=== PATIENT | female | born 1985 | race Asian ===

== ENCOUNTER 2016-09-05 17:21 | Emergency (ER) | payer MEDICAID ==
[2016-09-05 17:27] VITALS: BP 115/62; PULSE 78; RESP 18; TEMP 98; O2SAT 97
--- NOTE | 2016-09-05 17:38 | EDPHY ---
H & P Stated Complaint: rt ear lump inc. size with pain over last week HPI/ROS: HPI CHIEF COMPLAINT: Right earlobe pain HISTORY OF PRESENT ILLNESS: This patient very pleasant 31-year-old female, significant past medical history for agx-ulowvog-otfxtgrdi diabetes, however no longer takes diabetic medicine as she tells me she is no longer diabetic, she presents emergency room with 1 week of right earlobe pain redness warmth and swelling. She tells me she recently took her earrings out as was causing pain. She also has lymphadenopathy right periauricular and submandibular. No fever. No trouble swallowing. No ear pain inside except for the ear lobe. No lainey pus. No abscess. Of note separate complaint patient complains of intermittent week long smelling of urine but no dysuria or back pain or pelvic pain or abdominal pain. Requesting a urinalysis for and infection. Past Medical History: Xnh-lkhamfy-[id number] diabetes Past Surgical History: Not significant surgical history Social History: Smokes tobacco, denies other illicit drugs or alcohol Family History: Noncontributory ROS REVIEW OF SYSTEMS: A comprehensive 10 point review of systems is otherwise negative aside from elements mentioned in the history of present illness. Exam Constitutional triage nursing summary reviewed, vital signs reviewed, awake/ alert. Eyes normal conjunctivae and sclera, EOMI, PERRLA. HENT right earlobe: Mildly erythematous, no lainey pus, no significant induration, no fluctuance, no abscess visualize, appears to be a right earlobe cellulitis with reactive periauricular lymphadenopathy and submandibular lymphadenopathy, oropharynx unremarkable, normal inspection, atraumatic, moist mucus membranes, no epistaxis, neck supple/ no meningismus, no raccoon eyes. Respiratory clear to auscultation bilaterally, normal breath sounds, no respiratory distress, no wheezing. Cardiovascular rate normal, regular rhythm, no murmur, no edema, distal pulses normal. Gastrointestinal soft, non-tender, no rebound, no guarding, normal bowel sounds, no distension, no pulsatile mass. Genitourinary no CVA tenderness. Musculoskeletal no midline vertebral tenderness, full range of motion, no calf swelling, no tenderness of extremities, no meningismus, good pulses, neurovascularly intact. Skin pink, warm, & dry, no rash, skin atraumatic. Neurologic awake, alert and oriented x 3, AAOx3, moves all 4 extremities equally, motor intact, sensory intact, CN II-XII intact, normal cerebellar, normal vision, normal speech. Psychiatric normal mood/affect. Heme/Lymph/Immune no lymphadenopathy. Differential Diagnosis: Includes but is not limited to in a particular order cellulitis of the ear lobe, ear lobe infection, urinary tract infection, Medical Decision Making: Plan for this patient there is no abscess or significant induration to the external ear however mild warmth and erythema to the earlobe itself no lainey pus, patient be placed on Keflex, warm compresses 5 times a day for 20 minutes ENT referral case this gets worse. Also check urinalysis for infection . Urinalysis reviewed is negative no acute infection. test negative. Recommend feeling Keflex. Close ENT follow-up without her earlobe infection. Warm compresses. Return to the ER if there is any worsening symptoms questions or concerns she understands. Source: Patient - Personal History LMP (Females 10-55): 8-14 Days Ago Current Tetanus Diphtheria and Acellular Pertussis (TDAP): Yes Tetanus Vaccine Date: WITHIN 10 YRS - Medical/Surgical History Hx Asthma: No Hx Chronic Respiratory Disease: No Hx Diabetes: No Hx Cardiac Disease: No Hx Renal Disease: No Hx Cirrhosis: No Hx Alcoholism: No Hx HIV/AIDS: No Hx Splenectomy or Spleen Trauma: No Other PMH: treated type II diabetes with diet, now resolved - Social History Smoking Status: Current some day smoker Constitutional: Initial Vital Signs Temperature (C) 36.6 C 09/05/16 17:24 Heart Rate 78 09/05/16 17:24 Respiratory Rate 18 09/05/16 17:24 Blood Pressure 115/62 09/05/16 17:24 O2 Sat (%) 97 09/05/16 17:24 O2 Delivery Mode Room Air Allergies/Adverse Reactions: No Known Allergies Allergy (Unverified 03/30/14 22:56) Home Medications: Medication Instructions Recorded Cephalexin [Keflex] 500 mg PO Q6H #28 cap 09/05/16 Ibuprofen [Motrin (*)] 800 mg PO Q6-8PRN #10 tab 09/05/16 Medical Decision Making - Data Points Laboratory Results: 09/05/16 09/05/16 17:58 17:58 Urine Color YELLOW Urine Appearance CLEAR Urine pH 6.0 (5.0-7.5) Ur Specific [place] 1.015 (1.002-1.030) Urine Protein NEGATIVE (NEGATIVE) Urine Ketones NEGATIVE (NEGATIVE) Urine Blood NEGATIVE (NEGATIVE) Urine Nitrate NEGATIVE (NEGATIVE) Urine Bilirubin NEGATIVE (NEGATIVE) Urine Urobilinogen 0.2 EU EU (0.2-1.0) Ur Leukocyte Esterase NEGATIVE (NEGATIVE) Urine Glucose NEGATIVE (NEGATIVE) Urine Test NEGATIVE Departure - Departure Disposition: Home, Routine, Self-Care Clinical Impression: Infection of ear lobe Qualifiers: Laterality: right Qualified Code(s): H60.391 - Other infective otitis externa, right ear Condition: Good Instructions: Pierced Earlobe Infection (ED) Additional Instructions: 1. Please take antibiotics as prescribed and complete the antibiotics. 2. Use warm compresses 5 times a day for 20 minutes. 3. Please follow up with Ear Nose and Throat if this is worse. 4. Return emergency room if you have severe pain, high fever, worsening of symptoms. Referrals: JAZZMINE VOSS,. [Primary Care Provider] - As per Instructions Vivien Gutierrez MD [Medical Doctor] - As per Instructions Prescriptions: Cephalexin [Keflex] 500 mg PO Q6H #28 cap Ibuprofen [Motrin (*)] 800 mg PO Q6-8PRN #10 tab
[2016-09-05 18:02] LABS: COLOR YELLOW; LEUKOCYTE ESTERASE,URINE NEGATIVE (NEGATIVE); NITRITE,URINE NEGATIVE (NEGATIVE)
== END 2016-09-05 17:55 | disposition home or self-care (01) ==
LOC: CED 17:21
DX: H60.391 Other infective otitis externa, right ear (principal); E11.9 Type 2 diabetes mellitus without complications; F17.200 Nicotine dependence, unspecified, uncomplicated
CPT/HCPCS: 81003-PO; 81025-PO

== ENCOUNTER 2016-09-16 16:44 | Emergency (ER) | payer MEDICAID ==
[2016-09-16 16:52] VITALS: RESP 18; TEMP 98
--- NOTE | 2016-09-16 17:18 | EDPHY ---
H & P Stated Complaint: here on the for rt ear lobe infection- put on keflex states not workin Time Seen by Provider: 09/16/16 17:02 HPI/ROS: CHIEF COMPLAINT: Right ear abscess HISTORY OF PRESENT ILLNESS: the patient is a 31-year-old female who returns to the emergency department complaining of right ear pain and swelling. She was seen here 10 days ago and diagnosed with otitis externa and started on Keflex. She states that she has taking it initially 4 times a day and then 2 times a day. She states that it is not been helping. She has not had any hearing changes. No trauma. No drainage. She now has fluctuance behind her right ear lobe. REVIEW OF SYSTEMS: Constitutional: denies: chills, fever, recent illness, recent injury EENTM: see HPI Respiratory: denies: cough, shortness of breath Cardiac: denies: chest pain, irregular heart rate, lightheadedness, palpitations Gastrointestinal/Abdominal: denies: abdominal pain, diarrhea, nausea, vomiting, blood streaked stools Genitourinary: denies: dysuria, frequency, hematuria, pain Musculoskeletal: denies: joint pain, muscle pain Skin: See HPI Neurological: denies: headache, numbness, paresthesia, tingling, dizziness, weakness Hematologic/Lymphatic: denies: blood clots, easy bleeding, easy bruising Immunologic/allergic: denies: HIV/AIDS, transplant EXAM: GENERAL: Well-appearing, well-nourished and in no acute distress. HEAD: Atraumatic, normocephalic. EYES: Pupils equal round and reactive to light, extraocular movements intact, sclera anicteric, conjunctiva are normal. ENT: fluctuant 1 x 2 cm abscess behind right ear, not erythematous.TMs normal , nares patent, oropharynx clear without exudates. Moist mucous membranes. NECK: Normal range of motion, supple without lymphadenopathy or JVD. LUNGS: Breath sounds clear to auscultation bilaterally and equal. No wheezes rales or rhonchi. HEART: Regular rate and rhythm without murmurs, rubs or gallops. ABDOMEN: Soft, nontender, normoactive bowel sounds. No guarding, no rebound. No masses appreciated. BACK: No CVA tenderness, no spinal tenderness, step-offs or deformities EXTREMITIES: Normal range of motion, no pitting or edema. No clubbing or cyanosis. NEUROLOGICAL: Cranial nerves II through XII grossly intact. Normal speech, normal gait. 5/5 strength, normal movement in all extremities, normal sensation PSYCH: Normal mood, normal affect. SKIN: Warm, dry, normal turgor, no visible rashes or lesions. Source: Patient Exam Limitations: No limitations - Personal History LMP (Females 10-55): 15-21 Days Ago Tetanus Vaccine Date: WITHIN 10 YRS - Medical/Surgical History Hx Asthma: No Hx Chronic Respiratory Disease: No Hx Diabetes: No Hx Cardiac Disease: No Hx Renal Disease: No Hx Cirrhosis: No Hx Alcoholism: No Hx HIV/AIDS: No Hx Splenectomy or Spleen Trauma: No Other PMH: treated type II diabetes with diet, now resolved - Family History Significant Family History: No pertinent family hx - Social History Smoking Status: Current some day smoker Alcohol Use: Sober Drug Use: None Constitutional: Initial Vital Signs Temperature (C) 36.6 C 09/16/16 16:50 Heart Rate 65 09/16/16 16:50 Respiratory Rate 18 09/16/16 16:50 Blood Pressure 148/75 H 09/16/16 16:50 O2 Sat (%) 97 09/16/16 16:50 O2 Delivery Mode Room Air Allergies/Adverse Reactions: No Known Allergies Allergy (Unverified 03/30/14 22:56) Home Medications: Medication Instructions Recorded Cephalexin [Keflex] 500 mg PO Q6H #28 cap 09/05/16 Ibuprofen [Motrin (*)] 800 mg PO Q6-8PRN #10 tab 09/05/16 Sulfamethox/Tmp 800/160 mg 1 tab PO BID #14 tab 09/16/16 [Bactrim Ds] Medical Decision Making Procedures: Procedure: Abscess drainage. The patient's abscess was located on the Right ear. I obtained verbal consent from the patient to drain the abscess who was informed about the possibility of bleeding and pain. The abscess was incised with an 11 blade scalpel and 3 cc of purulent drainage was expressed. I irrigated the wound and placed some packing. The patient tolerated the procedure well. The procedure was performed by myself. ED Course/Re-evaluation: 5:50 p.m. the patient tolerated the procedure well. I instructed her concerning the packing. I will start her on Bactrim and encouraged her to continue the Keflex. We discussed follow-up. I will give her a take-home pack of Percocet for pain tonight. Differential Diagnosis: Partial list of the Differential diagnosis considered include but were not limited to; Abscess, cellulitis and although unlikely based on the history and physical exam, I also considered malignant otitis externa, otitis media, trauma. I discussed these differential diagnoses and the plan with the patient as well as the usual and expected course. The patient understands that the diagnosis is provisional and that in medicine we are not always correct and that further workup is often warranted. Usual and customary warnings were given. All of the patient's questions were answered. The patient was instructed to return to the emergency department should the symptoms at all worsen or return, otherwise to followup with the physician as we discussed. - Data Points Medications Given: Discontinued Medications Oxycodone/Acetaminophen (Percocet 5/325mg Prepack#4) 1 btl TAKEHOME EDNOW ONE Stop: 09/16/16 17:53 Last Admin: 09/16/16 18:10 Dose: 1 btl Trimethoprim/Sulfamethoxazole (Bactrim Ds) 1 ea PO EDNOW ONE PRN Reason: Protocol Stop: 09/16/16 17:52 Last Admin: 09/16/16 18:10 Dose: 1 ea Departure - Departure Disposition: Home, Routine, Self-Care Clinical Impression: Abscess Condition: Fair Instructions: Oxycodone/Acetaminophen (By mouth), Abscess (ED) Referrals: JAZZMINE VOSS,. [Primary Care Provider] - As per Instructions Prescriptions: Sulfamethox/Tmp 800/160 mg [Bactrim Ds] 1 tab PO BID #14 tab
[2016-09-16] MEDS ORDERED: SULFAMETHOX/TMP 800/160 MG 1 TAB PO ONE (17:51)
[2016-09-16] MEDS ORDERED: OXYCODONE/APAP 5/325MG PREPACK#4 BTL TAKEHOME ONE (17:52)
[2016-09-16 18:16] VITALS: BP 120/84; PULSE 82; O2SAT 99
== END 2016-09-16 18:16 | disposition home or self-care (01) ==
LOC: CED 16:44
PROC: 0H92XZZ Drainage of Right Ear Skin, External Approach (ICD-10-PCS; principal; 2016-09-16)
DX: H60.01 Abscess of right external ear (principal); E11.9 Type 2 diabetes mellitus without complications; F17.200 Nicotine dependence, unspecified, uncomplicated

== ENCOUNTER 2018-01-28 12:13 | Emergency (ER) | payer MEDICAID ==
[2018-01-28 12:26] VITALS: BP 115/76
--- NOTE | 2018-01-28 12:38 | EDPHY ---
H & P Time Seen by Provider: 01/28/18 12:15 HPI/ROS: CHIEF COMPLAINT: Left greater than right foot pain History by patient HISTORY OF PRESENT ILLNESS: 32-year-old woman with no significant past medical history presents complaining of pain in her left foot but also similar symptoms in her right just not as severe. She states the symptoms started in her heel and radiate to the rest of her foot. She woke up with the symptoms this morning. This is the 1st day of symptoms. She also has some tingling in the tips of her toes. Pain is worse when she goes up and down stairs. She also feels some pain on the top of her foot. 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 After getting Dr. Sky insoles for her shoes and breaking the minute seemed to get better but now she is having recurrent similar symptoms. She has not taken anything for the pain. She is requesting a note for work. She denies any leg swelling. She has no prior history of blood clotting. She has an aunt who had a blood clot in the past. REVIEW OF SYSTEMS: As in HPI, and all other systems reviewed and are negative Smoking Status: Current some day smoker Physical Exam: General Appearance: Alert and no distress. Head: Normocephalic, atraumatic Eyes: Pupils equal and round no injection. Extraocular movements are intact. Musculoskeletal: Neck is supple and nontender. Extremities: Bilateral feet with no deformity or swelling. Left foot mild tenderness on plantar surface of heel and along midfoot, wiggles toes, positive subjective sensation difference in distal toes, cap refill less than 2 sec, motor intact with full range of motion against resistance. Right foot without swelling tenderness or deformity. No sensation deficits. DP pulses are 2+ and equal bilaterally, PT pulses 2+ and equal bilaterally, normal gait full range of motion bilateral hips and knees. Skin: No rashes or lesions except as described above. Constitutional: Initial Vital Signs Temperature (C) 37.1 C 01/28/18 12:20 Heart Rate 80 01/28/18 12:20 Respiratory Rate 16 01/28/18 12:20 Blood Pressure 115/76 01/28/18 12:20 O2 Sat (%) 96 01/28/18 12:20 O2 Delivery Mode Room Air Allergies/Adverse Reactions: amoxicillin Allergy (Verified 01/28/18 12:27) Home Medications: Medication Instructions Recorded Meloxicam 7.5 mg PO DAILY #10 tablet 01/28/18 Obcp 01/28/18 MDM/Departure - [facility] ED Course/Re-evaluation: [age] old woman presents with bilateral left greater than right foot pain which is somewhat consistent with plantar fasciitis and does sound patient has had similar symptoms in the past. Today there is no evidence of significant swelling deformity or Neurological or vascular compromise. Will give patient a trial of anti-inflammatory pain medicine this and have her follow up with her primary care physician or it risk and assurance senior manager. Patient was given a work excuse at her request. - Depart Disposition: Home, Routine, Self-Care Clinical Impression: Foot pain, bilateral Condition: Good Instructions: Plantar Fasciitis (ED) Additional Instructions: You were seen by Dr. Anny Racson today. Try meloxicam needed for pain for the next week. If symptoms persist or get worse I recommend seeing a it risk and assurance senior manager for better insoles for your shoes or follow up with your primary care physician. Return for any worsening or new concerns. Prescriptions: Meloxicam 7.5 mg PO DAILY #10 tablet Referrals: NONE *PRIMARY CARE P,. [Primary Care Provider] - As per Instructions [facility],. [Clinic] - As per Instructions
== END 2018-01-28 12:50 | disposition home or self-care (01) ==
LOC: CED 12:13
DX: M72.2 Plantar fascial fibromatosis (principal)